=== PATIENT | female | born 1995 | race Hispanic/Latino ===

== ENCOUNTER 2025-01-28 11:59 | Emergency (ER) | payer SELFPAY ==
--- NOTE | ~2025-01-28 | US_ITS ---
EXAMINATION: US OB <=14 wk fetus w TV DATE: 01/28/2025 13:47 INDICATION: Vaginal bleeding. TECHNIQUE: Real-time transabdominal and transvaginal obstetric ultrasound. FINDINGS: No prior studies for comparison. The uterus measures 8 x 4.6 x 3.7 cm. No intrauterine identified. Ovaries within normal limits without significant solid or cystic mass. IMPRESSION: 1. No evidence for intrauterine . Differential diagnosis includes very early IUP, ectopic and failed . Recommend follow-up with serial quantitative beta-hCG levels and ultrasound as clinically warranted. Reviewed, dictated and finalized at location O. IMPRESSION: 1. No evidence for intrauterine . Differential diagnosis includes very early IUP, ectopic and failed . Recommend follow-up with se rial quantitative beta-hCG levels and ultrasound as clinically warranted.
[2025-01-28 12:08] VITALS: BP 128/53; PULSE 83; RESP 15; TEMP 37; O2SAT 97
[2025-01-28 12:39] LABS: Hematocrit 40.6 % (37.0-47.0); Hemoglobin 13.1 g/dL (12.0-15.0); Immature Granulocyte Percent A 0.3 % (0-0.5); Lymphocytes Absolute Auto 2.35 K/mm3 (0.9-3.2); Mean Corpuscular HGB Conc 32.3 g/dl (32-36); Mean Corpuscular Hemoglobin 28.5 pg (26-34); Mean Corpuscular Volume 88.3 fl (80-100); Nucleated Red Blood Cells Absolute Auto 0.000 K/mm3 (0.0-0.012); Nucleated Red Blood Cells Perc 0.0 % (0.0-0.2); Platelet Count Result 303 k/mm3 (150-375); Red Blood Count 4.60 M/mm3 (4.2-5.4); White Blood Count 11.0 K/mm3 (4.5-10.0)
[2025-01-28 12:57] LABS: Alanine Aminotransferase 37 U/L (6-35); Albumin Level 4.5 g/dL (3.5-5.1); Alkaline Phosphatase 84 U/L (38-126); Anion Gap 8 mmol/L (4-12); Aspartate Amino Transferase 33 U/L (14-36); Bilirubin,Total 0.4 mg/dL (0.2-1.3); Blood Urea Nitrogen 11 mg/dL (7-17); Calcium 9.2 mg/dL (8.4-10.2); Carbon Dioxide 23 mmol/L (22-30); Chloride 107 mmol/L (98-107); Estimated CRCL calculation 94 ml/min; Estimated Glomerular Filt Rate > 60; Glucose 107 mg/dL (65-110); Potassium 4.3 mmol/L (3.4-5.0); Sodium 138 mmol/L (137-145); Total Protein 8.1 g/dL (6.3-8.2)
[2025-01-28 13:00] LABS: INR 1.0; Prothrombin Time 13.1 Seconds (11.1-14.7)
[2025-01-28 13:01] LABS: Partial Thromboplastin Time 28.7 Seconds (22.3-36.8)
[2025-01-28 13:12] LABS: Beta HCG Quantitative 247.34 mIU/ML
[2025-01-28 14:08] VITALS: BP 132/73; PULSE 63; RESP 18; O2SAT 100
[2025-01-28 14:10] LABS: BEDSIDEPREGUCG Negative (Negative)
--- NOTE | 2025-01-28 14:22 | ED_ITS ---
HPI - General Adult General Chief complaint: Vaginal Bleeding Stated complaint: vag bld, 6w2d Time Seen by Provider: 01/28/25 12:05 History of Present Illness HPI narrative: This is a 29-year-old female at 6 weeks and 2 days gestation via last menstrual period presenting for vaginal bleeding in . She has been spotting throughout the week. Then today she had a positive of blood and clots. Associated with some abdominal cramping. She has appointment with Dr. Naheed Ferrell next week. She has not had an ultrasound yet. No other symptoms. Related Data Allergies Allergy/AdvReac Type Severity Reaction Status Date / Time morphine AdvReac Mild Chills Verified 01/28/25 12:14 Exam 2 Narrative: APPEARANCE: No apparent distress. Head: atraumatic. EYES: EOMI, NOSE: Atraumatic NECK: Trachea midline RESPIRATORY: No increased rate of breathing CARDIOVASCULAR: RRR, ABDOMINAL: Non-distended soft nontender Pelvic exam: Cervical os closed with scant bleeding in the vaginal vault MUSCULOSKELETAl: No obvious deformities NEURO: Alert. Moving 4/4 extremities SKIN:: Warm, dry. Normal color PSYCHIATRIC: Normal affect Course Vital Signs Vital signs: Vital Signs Temperature 98.6 F 01/28/25 12:08 Pulse Rate 83 01/28/25 12:08 Respiratory Rate 15 01/28/25 12:08 Blood Pressure 128/53 L 01/28/25 12:08 Pulse Oximetry 97 01/28/25 12:08 Oxygen Delivery Room Air 01/28/25 12:08 Temperature 98.6 F 01/28/25 12:08 Pulse Rate 63 01/28/25 14:08 Respiratory Rate 18 01/28/25 14:08 Blood Pressure 132/73 01/28/25 14:08 Pulse Oximetry 100 01/28/25 14:08 Oxygen Delivery Room Air 01/28/25 12:08 Medical Decision Making [facility] Narrative Medical decision making narrative: -Course: 29-year-old female presenting with vaginal bleeding in . HCG 315. Ultrasound did not show any fetus in the uterus. Blood type is Rh positive. Bleeding has stopped. Cervical os is closed. HCG is below the discriminatory zone. She will need a repeat HCG which could be obtained with Dr. Ferrell. -DDX includes but is not limited to: Early IUP, threatened miscarriage, complete miscarriage Vital Signs Vital Signs: Vital Signs Temperature 98.6 F 01/28/25 12:08 Pulse Rate 83 01/28/25 12:08 Respiratory Rate 15 01/28/25 12:08 Blood Pressure 128/53 L 01/28/25 12:08 Pulse Oximetry 97 01/28/25 12:08 Oxygen Delivery Room Air 01/28/25 12:08 Temperature 98.6 F 01/28/25 12:08 Pulse Rate 63 01/28/25 14:08 Respiratory Rate 18 01/28/25 14:08 Blood Pressure 132/73 01/28/25 14:08 Pulse Oximetry 100 01/28/25 14:08 Oxygen Delivery Room Air 01/28/25 12:08 Lab Data 01/28/25 12:27 01/28/25 12:27 Labs: Lab Results 01/28/25 01/28/25 01/28/25 Range/Units 12:27 14:08 14:10 WBC 11.0 H (4.5-10.0) K/mm3 RBC 4.60 (4.2-5.4) M/mm3 Hgb 13.1 (12.0-15.0) g/dL Hct 40.6 (37.0-47.0) % MCV 88.3 (80-100) fl MCH 28.5 (26-34) pg MCHC 32.3 (32-36) g/dl RDW 12.7 (11.5-14.5) % Plt Count 303 (150-375) k/mm3 MPV 11.2 H (7.4-10.4) fl Immature Gran % (Auto) 0.3 (0-0.5) % Neut % (Auto) 69.6 (45.5-73.1) % Lymph % (Auto) 21.4 (18.3-44.2) % [place] % (Auto) 7.6 (2.6-8.5) % Eos % (Auto) 0.6 (0-4.4) % Baso % (Auto) 0.5 (0.2-1.2) % Lymph # (Auto) 2.35 (0.9-3.2) K/mm3 [place]vin # (Auto) 0.8 H (0.1-0.6) K/mm3 Eos # (Auto) 0.1 (0-0.3) K/mm3 Baso # (Auto) 0.1 (0.0-0.1) K/mm3 Abs Immat Gran (auto) 0.03 (0.00-0.031) K/mm3 Absolute Neuts (auto) 7.6 H (1.3-6.7) K/mm3 Absolute Nucleated RBC 0.000 (0.0-0.012) K/mm3 Nucleated RBC % 0.0 (0.0-0.2) % PT 13.1 (11.1-14.7) Seconds INR 1.0 APTT 28.7 (22.3-36.8) Seconds Sodium 138 (137-145) mmol/L Potassium 4.3 (3.4-5.0) mmol/L Chloride 107 (98-107) mmol/L Carbon Dioxide 23 (22-30) mmol/L Anion Gap 8 (4-12) mmol/L BUN 11 (7-17) mg/dL Creatinine 0.85 (0.7-1.0) mg/dL Estim Creat Clear Calc 94 ml/min Estimated GFR > 60 (59 - ) Glucose 107 (65-110) mg/dL Calcium 9.2 (8.4-10.2) mg/dL Total Bilirubin 0.4 (0.2-1.3) mg/dL AST 33 (14-36) U/L ALT 37 H (6-35) U/L Alkaline Phosphatase 84 (38-126) U/L Total Protein 8.1 (6.3-8.2) g/dL Albumin 4.5 (3.5-5.1) g/dL Beta HCG, Quant 247.34 mIU/ML Urine Color Pending Urine Appearance Pending Urine pH Pending Ur Specific [place] Pending Urine Protein Pending Urine Glucose (UA) Pending Urine Ketones Pending Ur Blood (Man) Pending Urine Nitrate Pending Urine Bilirubin Pending Urine Urobilinogen Pending Leukocyte Esterase Rfl Pending POC Urine HCG, Qual Negative (Negative) Blood Type O Positive Antibody Screen Negative Screen Not Reportable Baby's Blood Type Not Reportable Baby's MISSY Not Reportable Doses of RhIg Required 0 Discharge Plan Discharge Clinical Impression: Vaginal bleeding in Patient Disposition: Home Condition: Stable Instructions: Antibiotic Form, Miscarriage (ED) Additional Instructions: You were seen in the emergency department for vaginal bleeding. Please call the clinic up Dr. Ferrell as he will need repeat hCG levels in 2 days to determine if you have had a miscarriage or if this is early . Your hCG today was 247. Patient Language: Indian Follow-up/Referrals: Naheed Ferrell MD [Physician, [employer]INE [employer]PERATOR] - 2 Days Referral Note: Vaginal bleeding in . PHYSICIAN NOT ON STAFF,NONSTAFF [Primary Care Provider]
[2025-01-28 14:31] LABS: Add Urine Microscopic? YES; Appearance Urine Cloudy (Clear); Glucose Urine UA Negative (Negative); Leukocyte Esterase Ur Trace LEU/UL (Negative); Need Manual Microscopic Reviewed; Nitrate Urine Negative (Negative); Non Pathogenic Casts 0-2; Specific Grav Ur 1.010 (1.001-1.035)
== END 2025-01-28 17:01 | disposition home or self-care (01) ==
PROVIDERS: Emergency Provider Emergency Medicine
DX: O20.9 Hemorrhage in early pregnancy, unspecified (principal); Z3A.01 Less than 8 weeks gestation of pregnancy
CPT/HCPCS: 36415; 76801; 76817; 80053; 81001; 81025; 84702; 85025; 85461; 85610; 85730; 86850; 86900; 86901; 99284